=== PATIENT | female | born 1965 | race Caucasian/White ===

== ENCOUNTER 2017-09-24 14:01 | Emergency (ER) | payer BC ==
[~2017-09-24] VITALS: Ht 162.6 cm; Wt 84.1 kg
[2017-09-24 14:03] VITALS: TEMP 98.5
[2017-09-24 14:30] LABS: BASO # 0.1 (0.0-0.2); BASO % 0.9 % (0.0-2.0); GRAN # 3.5 (1.4-6.5); GRAN % 60.8 % (42.2-75.2); HEMATOCRIT 42.9 % (37.0-47.0); HEMOGLOBIN 14.9 g/dl (12.5-16.0); LYMPH # 1.8 (1.2-3.4); LYMPH % 31.6 % (20.0-51.0); MEAN CELL VOLUME 87 fl (80.0-100.0); MEAN CORPUSCULAR HEMOGLOBIN 30 pg (27.0-31.0); MEAN CORPUSCULAR HGB CONC 35 g/dl (33.0-37.0); MEAN PLATELET VOLUME 9.3 fl (7.4-10.4); MONO # 0.4 (0.1-0.6); MONO % 6.5 % (1.7-9.3); PLATELET COUNT 323 K/mm3 (130-400); RED BLOOD COUNT 4.94 M/mm3 (4.10-5.30); WHITE BLOOD COUNT 5.7 K/mm3 (4.8-10.8)
[2017-09-24] MEDS ORDERED: PRIL40 PO (14:42)
[2017-09-24] MEDS ORDERED: LEXAPRO20 MG PO (14:43)
[2017-09-24] MEDS ORDERED: VYVANSE70 MG PO (14:43)
[2017-09-24] MEDS ORDERED: WELLBUTRIN XL300 M1 PO (14:43)
[2017-09-24 14:44] LABS: ADJUSTED CALCIUM 8.9 mg/dL (8.4-10.2); ALANINE AMINOTRANSFERASE 59 U/L (9-52); ALBUMIN 4.8 gm/dL (3.5-5.0); ALKALINE PHOSPHATASE 82 U/L (50-136); ANION GAP 13 mmol/L (7-16); BILIRUBIN,TOTAL 0.4 mg/dL (0.0-1.0); BLOOD UREA NITROGEN 10 mg/dL (7-17); C-REACTIVE PROTEIN 1.1 mg/dL (0.0-0.9); CALCIUM 9.5 mg/dL (8.4-10.2); CARBON DIOXIDE 23 mmol/L (22-30); CHLORIDE 104 mmol/L (98-107); CREATININE, serum 0.94 mg/dL (0.52-1.25); GLUCOSE 138 mg/dL (74-106); LIPASE 89 U/L (23-300); POTASSIUM 3.9 mmol/L (3.4-5.0); SODIUM 140 mmol/L (137-145); TOTAL PROTEIN 7.8 gm/dL (6.4-8.2)
[2017-09-24 14:55] LABS: B-TYPE NATRIURETIC PEPTIDE < 11 pg/mL (0-125); TROPONIN-I < 0.012 ng/mL (0.000-0.034)
[2017-09-24] MEDS ORDERED: TOPROL XL 25MG25 MG PO (15:17)
[2017-09-24 15:41] VITALS: BP 127/90; PULSE 76
== END 2017-09-24 15:41 | disposition home or self-care (01) ==
LOC: COL.ER 14:01
PROVIDERS: Emergency Medicine
DX: K21.9 Gastro-esophageal reflux disease without esophagitis (principal); R07.89 Other chest pain; R00.2 Palpitations; F90.9 Attention-deficit hyperactivity disorder, unspecified type; F32.9 Major depressive disorder, single episode, unspecified